=== PATIENT | male | born 1990 | race African-American/Black ===

== ENCOUNTER 2019-10-05 22:44 | Emergency (ER) | payer MEDICAID, OTHER ==
[~2019-10-05] VITALS: Ht 175.3 cm; Wt 56.7 kg
[2019-10-05 23:57] VITALS: BP 106/74
== END 2019-10-06 00:09 | disposition home or self-care (01) ==
LOC: ER 22:49
DX: S01.112D Laceration without foreign body of left eyelid and periocular area, subsequent encounter (principal); X58.XXXD Exposure to other specified factors, subsequent encounter